=== PATIENT | female | born 1990 | race Hispanic/Latino ===

== ENCOUNTER 2017-12-30 17:02 | Observation (INO) | payer MEDICAID ==
[~2017-12-30] VITALS: Ht 170.2 cm; Wt 111.6 kg
[~2017-12-30 17:02] MED LIST: PRENATAL VIT PO
[2017-12-30 17:33] VITALS: BP 115/64
[2017-12-30 17:51] LABS: AMPHET/METH SCREEN,URINE NEGATIVE (NEGATIVE); BARBITURATE SCREEN, URINE NEGATIVE (NEGATIVE); BENZODIAZEPINES SCREEN,URINE NEGATIVE (NEGATIVE); CANNABINOID SCREEN,URINE NEGATIVE (NEGATIVE); COCAINE SCREEN,URINE NEGATIVE (NEGATIVE); OPIATE SCREEN,URINE NEGATIVE (NEGATIVE); PHENCYCLIDINE SCREEN,URINE NEGATIVE (NEGATIVE)
== END 2017-12-30 18:02 | disposition home or self-care (01) ==
LOC: LDH 17:02
PROVIDERS: ADMIT Specialist; ATTEND Specialist
DX: O42.92 Full-term premature rupture of membranes, unspecified as to length of time between rupture and onset of labor (principal); Z3A.38 38 weeks gestation of pregnancy
CPT/HCPCS: 80305; G0378 ×2

== ENCOUNTER 2018-01-15 17:27 | Inpatient (IN) | payer MEDICAID ==
[~2018-01-15] VITALS: Ht 170.2 cm; Wt 115.2 kg
[2018-01-15] MEDS ORDERED: LACTATED RINGERS 1000ML 1,000 ML IV PRN (17:57)
[2018-01-15] MEDS ORDERED: LACTATED RINGERS 500 ML 500 ML IV PRN (18:00)
[2018-01-15] MEDS ORDERED: NALOXONE HCL 0.4 MG/1 ML ML IV PRN (18:00)
[2018-01-15] MEDS ORDERED: OXYTOCIN-LR 20 UNITS/1000 ML 1,000 ML IV SCH (18:00)
[2018-01-15] MEDS ORDERED: MORPHINE SULFATE 10 MG/ML 1ML SYG IM PRN (18:00)
[2018-01-15] MEDS ORDERED: EPHEDRINE SULFATE 50 MG/ML AMPULE IVP PRN (18:00)
[2018-01-15 18:13] LABS: HEMATOCRIT 38.2 % (36-48); MEAN CORPUSCULAR HEMOGLOBIN 30.6 pg (27.0-33.0); MEAN CORPUSCULAR VOLUME 87.5 fL (79-99); PLATELET COUNT (AUTO) 192 K/uL (130-400); RED BLOOD CELL COUNT(AUTO) 4.36 MIL/uL (4.00-5.50); RED CELL DISTRIBUTION WIDTH 13.6 % (11.0-15.5); WHITE BLOOD COUNT (AUTO) 8.4 K/uL (4.8-10.8)
[2018-01-15 18:15] LABS: APPEARANCE,URINE Clear (CLEAR); BILIRUBIN,URINE Negative (NEGATIVE); COLOR,URINE Yellow (YELLOW); GLUCOSE, URINE (UA) Negative (NEGATIVE); KETONES,URINE Trace mg/dL (NEGATIVE); LEUKOCYTE ESTERASE ,URINE Negative (NEGATIVE); NITRATE,URINE Negative (NEGATIVE); OCCULT BLOOD,URINE Negative (NEGATIVE); PH,URINE 5.5 (5.0-8.0); PROTEIN,URINE Negative (NEGATIVE); UROBILINOGEN,URINE 0.2 mg/dL (0.2-1.0)
[2018-01-15] MEDS ORDERED: DINOPROSTONE 10 MG VAGINAL SUPP ONE (18:41)
[2018-01-15] MEDS ORDERED: DINOPROSTONE 10 MG VAGINAL SUPP EC ONE (20:00)
[2018-01-15 21:49] LABS: AMPHET/METH SCREEN,URINE NEGATIVE (NEGATIVE); BARBITURATE SCREEN, URINE NEGATIVE (NEGATIVE); BENZODIAZEPINES SCREEN,URINE NEGATIVE (NEGATIVE); CANNABINOID SCREEN,URINE NEGATIVE (NEGATIVE); COCAINE SCREEN,URINE NEGATIVE (NEGATIVE); OPIATE SCREEN,URINE NEGATIVE (NEGATIVE); PHENCYCLIDINE SCREEN,URINE NEGATIVE (NEGATIVE)
[2018-01-15] MEDS ORDERED: MORPHINE SULFATE 10 MG/ML 1ML VIAL IM PRN (21:55)
[2018-01-16] MEDS ORDERED: NALOXONE HCL 0.4 MG/1 ML ML IV PRN (06:45)
[2018-01-16] MEDS ORDERED: LACTATED RINGERS 500 ML 500 ML IV PRN (06:45)
[2018-01-16] MEDS ORDERED: ROPIVACAINE 0.2%200ML EPIDURAL 200 ML EP PRN (06:45)
[2018-01-16] MEDS ORDERED: OXYTOCIN 10 USP UNITS/ML 20 UNIT in LACTATED RINGERS 1000ML 1,000 ML IV SCH (07:00)
[2018-01-16] MEDS ORDERED: OXYTOCIN 10 USP UNITS/ML ONE ×2 (07:51→10:23)
[2018-01-16] MEDS ORDERED: BENZOCAINE/LANOLIN/ALOE VERA 60 ML AEROSOL TP PRN (09:15)
[2018-01-16] MEDS ORDERED: MEASLES/MUMPS/RUBELLA VACCINE, LIVE 0.5 ML/VIAL SQ PRN (09:15)
[2018-01-16] MEDS ORDERED: LANOLIN 30GM OINTMENT TP PRN (09:15)
[2018-01-16] MEDS ORDERED: ACETAMINOPHEN-CODEINE 300/30MG TAB PO PRN (09:15)
[2018-01-16] MEDS ORDERED: OXYTOCIN-LR 20 UNITS/1000 ML 1,000 ML IV SCH (09:15)
[2018-01-16] MEDS ORDERED: WITCH HAZEL 1 PAD TP PRN (09:15)
[2018-01-16] MEDS: IBUPROFEN 800 MG TAB PO PRN ×2 (12:45→23:15)
[2018-01-16 15:42] VITALS: BP 126/84
[2018-01-16 20:18] VITALS: BP 119/70
[2018-01-16] MEDS: DOCUSATE SODIUM 100 MG CAP PO SCH (21:11)
[2018-01-16 23:05] VITALS: BP 122/72
[2018-01-17 04:20] VITALS: BP 115/67
[2018-01-17 07:29] LABS: HEPATITIS Bs ANTIGEN SCREEN P Negative (Negative)
[2018-01-17 07:45] VITALS: BP 104/68
[2018-01-17] MEDS: DOCUSATE SODIUM 100 MG CAP PO SCH (09:09)
[2018-01-17] MEDS: IBUPROFEN 800 MG TAB PO PRN (09:11)
[2018-01-17 11:37] VITALS: BP 111/64
[2018-01-17] MEDS ORDERED: DIPH,PERTUSS(ACELL),TET VAC/PF 0.5 ML VIAL IM SCH (11:45)
== END 2018-01-17 15:00 | disposition home or self-care (01) | DRG 560 ==
LOC: LDH 17:27 → WSH 01-16 15:37
PROC: 10E0XZZ Delivery of Products of Conception, External Approach (ICD-10-PCS; principal; 2018-01-16)
PROC: 3E0R3BZ Introduction of Anesthetic Agent into Spinal Canal, Percutaneous Approach (ICD-10-PCS; 2018-01-16)
PROC: 00HU33Z Insertion of Infusion Device into Spinal Canal, Percutaneous Approach (ICD-10-PCS; 2018-01-16)
PROC: 3E0234Z Introduction of Serum, Toxoid and Vaccine into Muscle, Percutaneous Approach (ICD-10-PCS; 2018-01-16)
PROC: 3E0134Z Introduction of Serum, Toxoid and Vaccine into Subcutaneous Tissue, Percutaneous Approach (ICD-10-PCS; 2018-01-16)
DX: O69.81X0 Labor and delivery complicated by cord around neck, without compression, not applicable or unspecified (principal); Z23 Encounter for immunization; Z37.0 Single live birth; Z3A.40 40 weeks gestation of pregnancy
CPT/HCPCS: 36415; 80305; 81003; 85027; 86592; 86850; 86900; 86901; 87340; 90707; 90715; A4314; J2270; J2590; J7120

== ENCOUNTER 2021-08-23 22:34 | Inpatient (IN) | payer MEDICAID ==
[~2021-08-23] VITALS: Ht 172.7 cm; Wt 117.9 kg
[2021-08-23] MEDS ORDERED: PREN-196 PO (22:58)
[2021-08-23] MEDS ORDERED: LACTATED RINGERS 500 ML 500 ML IV PRN (23:00)
[2021-08-23] MEDS ORDERED: EPHEDRINE SULFATE 50 MG/ML AMPULE IVP PRN (23:00)
[2021-08-23] MEDS ORDERED: NALOXONE HCL 0.4 MG/1 ML ML IV PRN (23:00)
[2021-08-23] MEDS ORDERED: MEPERIDINE-PF 50 MG/ML SYG IVP PRN (23:00)
[2021-08-23] MEDS ORDERED: LACTATED RINGERS 1000ML 1,000 ML IV PRN (23:00)
[2021-08-23] MEDS ORDERED: ROPIVACAINE 0.2% 100ML VIAL 100 ML EP SCH (23:00)
[2021-08-23] MEDS ORDERED: PROMETHAZINE HCL 25 MG/ML 1ML AMPULE IM PRN (23:00)
[2021-08-23 23:11] LABS: APPEARANCE,URINE Clear (CLEAR); BILIRUBIN,URINE Negative (NEGATIVE); COLOR,URINE Yellow (YELLOW); GLUCOSE, URINE (UA) Negative (NEGATIVE); KETONES,URINE Negative (NEGATIVE); LEUKOCYTE ESTERASE ,URINE Negative (NEGATIVE); NITRATE,URINE Negative (NEGATIVE); OCCULT BLOOD,URINE Negative (NEGATIVE); PH,URINE 5.5 (5.0-8.0); PROTEIN,URINE Trace mg/dL (NEGATIVE)
[2021-08-23 23:39] LABS: HEMATOCRIT 34.3 % (36-48); MEAN CORPUSCULAR HEMOGLOBIN 30.7 pg (27.0-33.0); MEAN CORPUSCULAR HGB CONC 34.1 g/dL (32.0-36.0); RED BLOOD CELL COUNT(AUTO) 3.81 MIL/uL (4.00-5.50); RED CELL DISTRIBUTION WIDTH 13.3 % (11.0-15.5); WHITE BLOOD COUNT (AUTO) 6.8 K/uL (4.8-10.8)
[2021-08-24 00:50] VITALS: BP 111/69
[2021-08-24 01:33] LABS: AMPHET/METH SCREEN,URINE NEGATIVE (NEGATIVE); BARBITURATE SCREEN, URINE NEGATIVE (NEGATIVE); BENZODIAZEPINES SCREEN,URINE NEGATIVE (NEGATIVE); CANNABINOID SCREEN,URINE NEGATIVE (NEGATIVE); COCAINE SCREEN,URINE NEGATIVE (NEGATIVE); OPIATE SCREEN,URINE NEGATIVE (NEGATIVE); PHENCYCLIDINE SCREEN,URINE NEGATIVE (NEGATIVE)
[2021-08-24] MEDS ORDERED: OXYTOCIN-LR 20 UNITS/1000 ML 1,000 ML IV SCH ×2 (03:00→10:00)
[2021-08-24] MEDS ORDERED: DIPH,PERTUSS(ACELL),TET VAC/PF 0.5 ML VIAL IM PRN (10:00)
[2021-08-24] MEDS ORDERED: WITCH HAZEL 1 PAD TP PRN (10:00)
[2021-08-24] MEDS ORDERED: ACETAMINOPHEN WITH CODEINE 1 TAB TAB PO PRN (10:00)
[2021-08-24] MEDS ORDERED: LANOLIN 30GM OINTMENT TP PRN (10:00)
[2021-08-24] MEDS ORDERED: MEASLES/MUMPS/RUBELLA VACCINE, LIVE 0.5 ML/VIAL SQ PRN (10:00)
[2021-08-24] MEDS ORDERED: ACETAMINOPHEN 325 MG TAB PO PRN (10:00)
[2021-08-24] MEDS ORDERED: BENZOCAINE/LANOLIN/ALOE VERA 60 ML AEROSOL TP PRN (10:00)
[2021-08-24 13:45] VITALS: BP 118/77
[2021-08-24 16:41] VITALS: BP 122/76
[2021-08-24] MEDS: IBUPROFEN 600 MG TABLET PO PRN (17:45)
[2021-08-24 19:18] VITALS: BP 112/59
[2021-08-24] MEDS: DOCUSATE SODIUM 100 MG CAP PO SCH (20:50)
[2021-08-25 00:16] VITALS: BP 110/65
[2021-08-25 03:20] VITALS: BP 95/51
[2021-08-25] MEDS: IBUPROFEN 600 MG TABLET PO PRN (04:29)
[2021-08-25 05:12] LABS: HEPATITIS Bs ANTIGEN SCREEN P Negative (Negative)
[2021-08-25 06:17] LABS: MEAN CORPUSCULAR HEMOGLOBIN 29.7 pg (27.0-33.0); MEAN CORPUSCULAR HGB CONC 33.1 g/dL (32.0-36.0); MEAN CORPUSCULAR VOLUME 89.8 fL (79-99); RED BLOOD CELL COUNT(AUTO) 4.01 MIL/uL (4.00-5.50); RED CELL DISTRIBUTION WIDTH 13.3 % (11.0-15.5); WHITE BLOOD COUNT (AUTO) 6.6 K/uL (4.8-10.8)
[2021-08-25 07:22] VITALS: BP 98/63
[2021-08-25] MEDS: DOCUSATE SODIUM 100 MG CAP PO SCH (08:10)
[2021-08-25 12:14] VITALS: BP 117/72
== END 2021-08-25 16:00 | disposition home or self-care (01) | DRG 560 ==
LOC: LDH 22:34 → WSH 08-24 13:40
PROVIDERS: ADMIT Obstetrics & Gynecology; ATTEND Obstetrics & Gynecology
PROC: 10E0XZZ Delivery of Products of Conception, External Approach (ICD-10-PCS; principal; 2021-08-24)
PROC: 10907ZC Drainage of Amniotic Fluid, Therapeutic from Products of Conception, Via Natural or Artificial Opening (ICD-10-PCS; 2021-08-24)
PROC: 3E033VJ Introduction of Other Hormone into Peripheral Vein, Percutaneous Approach (ICD-10-PCS; 2021-08-24)
DX: O99.214 Obesity complicating childbirth (principal); E66.9 Obesity, unspecified; O71.82 Other specified trauma to perineum and vulva; Z37.0 Single live birth; Z3A.40 40 weeks gestation of pregnancy
CPT/HCPCS: 36415; 76805; 80305; 81003; 85027; 86592; 86701; 86850; 86900; 86901; 87340; 87390; A4314; G0378; J2175; J2550; J2590; J2795; J3490; J7120